=== PATIENT | male | born 1960 | race Caucasian/White ===

== ENCOUNTER 2021-06-20 10:55 | Inpatient (IN) | payer BC, OTHER ==
[~2021-06-20] VITALS: Ht 180.3 cm; Wt 88.9 kg
[2021-06-20 11:00] VITALS: BP 113/80
[2021-06-20 11:34] LABS: HEMOGLOBIN 12.3 gm/dL (14.0-18.0); MCH 21.5 pg (26.0-34.0); MCHC 32.4 g/dL (28.0-37.0); MCV 66.4 fL (80.0-100.0); PLATELET COUNT 174 thou/uL (150-400); RBC 5.73 mil/uL (4.50-6.00); RDW 14.8 % (10.5-14.5); WBC 8.1 thou/uL (4.0-11.0)
[2021-06-20 11:40] LABS: CALCIUM 8.2 mg/dL (8.5-10.1); POTASSIUM 3.9 mmol/L (3.5-5.1)
[2021-06-20 11:50] LABS: ALBUMIN 2.9 g/dL (3.4-5.0); TOTAL BILIRUBIN 1.1 mg/dL (0.2-1.0); TOTAL PROTEIN 6.7 g/dL (6.4-8.2)
[2021-06-20 12:37] LABS: ABSOLUTE NEUTROPHILS 7.4 thou/uL (1.4-8.2); ANISOCYTOSIS 1+; MICROCYTES 2+; PLATELET ESTIMATE NORMAL
[2021-06-20 14:27] VITALS: BP 114/73
--- NOTE | 2021-06-20 15:04 | NUR ---
REPORT CALLED TO FLOOR NURSE AT THIS TIME. NURSE STATES THE BED IS NOT CURRENTLY CLEAN AND SHE WILL CALL WHEN IT IS READY.
[2021-06-20 16:30] VITALS: BP 117/69
[2021-06-20 17:20] VITALS: BP 128/86
--- NOTE | 2021-06-20 17:24 | EKG ---
[address] [address] ELECTROCARDIOGRAM REPORT Name: KATHY NEVILLE Room #: 358-P ADM IN M.R.#: [id number] Admission: 06/20/21 Attend Phys: Mark Flowers MD Discharge: Date of : 64 Report #: [id number] [facility] ED Test Date: 2021-06-20 Test Time: 11:11:46 Pat Name: KATHY NEVILLE Department: Room: [facility] Gender: M Sequins Spooler: [id number] : 1960 Requested By: Emerita Hung Order Number: [id number] MD: Mason Avendaño Measurements Intervals [place] Rate: 99 P: [place]: QRS: 2 QRSD: 122 T: -15 QT: 330 QTc: 424 Interpretive Statements Marked baseline artifact Sinus rhythm Compared to ECG 10/15/2012 10:22:55 No significant change was found Electronically Signed On 06-20-2021 17:24:31 MARKETING CONTENT SPECIALIST by Mason Avendaño [email or web address] <ELECTRONICALLY SIGNED> By: Mason Avendaño MD, [facility] 06/20/21 1724 1111 [facility] Mason Avendaño MD, FACC /EPI
--- NOTE | 2021-06-20 17:55 | NUR ---
PATIENT ADMIT TO UNIT AT 1630. A/O X4. ON 6L /NC. SOB WITH EXERTON. ANXUIOS. WILL KEEP MONITOR.
[2021-06-21 04:37] VITALS: BP 149/92
--- NOTE | 2021-06-21 06:09 | NUR ---
NEW ADMIT ON 06/20. NON VACCINATED AND REFUSING SOME MEDICATIONS. EDUCATED PT ABOUT COVID AND NEED TO FOLLOW COVID POC. PT HAS SOME COMFUSION HE WILL ASK THE SAME QUESTIONS 2/3 TIMES OVER SHIFT. CURRENTLY ON 6L AND 02 SAT IS 95%. PT CAN AMBULATE AD RENETTA. CALL LIGHT WITHIN REACH.
[2021-06-21 06:48] LABS: HEMATOCRIT 36.3 % (42.0-52.0); HEMOGLOBIN 11.9 gm/dL (14.0-18.0); MCHC 32.9 g/dL (28.0-37.0); MCV 67.1 fL (80.0-100.0); RBC 5.41 mil/uL (4.50-6.00); RDW 14.8 % (10.5-14.5); WBC 6.8 thou/uL (4.0-11.0)
[2021-06-21 06:51] LABS: CALCIUM 8.1 mg/dL (8.5-10.1); CREATININE 0.9 mg/dL (0.7-1.3); POTASSIUM 4.3 mmol/L (3.5-5.1)
[2021-06-21 11:26] VITALS: BP 141/85
--- NOTE | 2021-06-21 12:28 | NUR ---
INITIAL ASSESSMENT: SW reviewed chart and spoke with nursing and attending physician. Pt was admitted from home due to respiratory failure/COVID. Pt placed in Enhanced Isolation. Per chart, pt has not received a COVID vaccination. Pt is afebrile. Pt was on 10L earlier today and is now requiring optiflow. SW spoke with pt via phone. Introduced role of SW. Pt is alert/orientated x 4. Pt reports he lives at home with his . Prior to admission, pt was independent with ADLs. No use of DME. No hx of services or post-acute placement. Pt's PCP is Dr. Wyatt Hernandez. No therapy ordered for pt at this time. Plan is for pt to discharge home when medically stable. SW is following to assist as needed with discharge planning.
--- NOTE | 2021-06-21 17:55 | NUR ---
ASSUMED PATIENT CASRE AT 0700. A/O X4. ANXIOUS. ON OPTIFLOW 50L/65%. WILL KEEP MONITOR.
[2021-06-21 19:30] VITALS: BP 141/86
[2021-06-22] VITALS (8 sets, daily range): BP systolic 114–141; BP diastolic 62–96
--- NOTE | 2021-06-22 00:16 | HC ---
[facility] [place] [address] CONSULTATION Name: KATHY NEVILLE Room #: 358-P [facility] IN ..#: [id number] Admission: 06/20/21 Attend Phys: Mark Flowers MD Discharge: Date of : 64 Report #: [id number] THIS REPORT FOR: cc: Wyatt Hernanedz MD, Stanley P. MD Geha, Daniel J. MD ~ DATE OF SERVICE: 06/20/2021 INFECTIOUS DISEASE CONSULTATION REASON FOR CONSULTATION: I was asked to evaluate concerning COVID-19 pneumonia. HISTORY OF PRESENT ILLNESS: The patient is a 61-year-old unvaccinated with COVID-19 presents with a 10-day history of low-grade fever, myalgias, arthralgia, nonproductive cough and progressive shortness of breath. No headache or anosmia. Mild GI upset and diarrhea. He was on prednisone and azithromycin prior to his admission. He presented to the emergency room, hypoxic with O2 saturations in the 80s on room air. Now on 6 L of oxygen per nasal cannula. Chest x-ray has shown bilateral pulmonary infiltrates. ALLERGIES: CLINDAMYCIN and PENICILLIN. MEDICATIONS: As noted on his MAR. PAST MEDICAL HISTORY: ____. FAMILY HISTORY: Negative for tuberculosis. SOCIAL HISTORY: Nonsmoker. No significant alcohol intake. Lives with his . No recent travel. REVIEW OF SYSTEMS: A 14-point review of systems was negative, other than what has been described above. PHYSICAL EXAMINATION: GENERAL: He is afebrile and hemodynamically stable. Alert, cooperative and pleasant. No acute distress. He is on CPAP high flow. SKIN: Without rash. HEENT: No palpable adenopathy. Eyes without scleral icterus. Mouth without mucositis. NECK: Supple. LUNGS: Crackles posteriorly. HEART: Regular without murmur. ABDOMEN: Soft and nontender with no hepatosplenomegaly or mass. EXTREMITIES: Without clubbing, cyanosis or edema. Cranial nerves intact. Strength in the upper and lower extremities are symmetric. Mood without [facility] [address] [place] [address] CONSULTATION Name: JAMINKATHY Room #: 358[facility] IN ..#: [id number] Admission: 06/20/21 Attend Phys: Mark Flowers MD Discharge: Date of : 64 Report #: [id number] anxiety. LABORATORY: Reviewed. MICROBIOLOGY: Reviewed. IMAGING: Chest x-ray reviewed. CT scan of the chest reviewed. IMPRESSION: A 61-year-old with COVID-19 pneumonia and respiratory failure. He is unvaccinated for COVID-19. He has underlying obstructive sleep apnea. RECOMMENDATION: I offered the patient remdesivir and corticosteroids and if he should worsen, we would consider IL-6 inhibitor. He has been on 6 to 8 L of oxygen per nasal cannula. May well progress from there. We will follow serial laboratory studies and x-rays. The patient was contemplating his treatment options, but did not give me a decision, has been started on corticosteroids. I have discussed with nurse again at the bedside. <ELECTRONICALLY SIGNED> By: Nate Colmenares MD 06/22/21 0016 [id number] Nate Colmenares MD /nt
[2021-06-22 05:09] LABS: ABSOLUTE NEUTROPHILS 7.2 thou/uL (1.4-8.2); BASOPHILS 0.2 % (0.0-2.0); HEMATOCRIT 36.5 % (42.0-52.0); HEMOGLOBIN 11.8 gm/dL (14.0-18.0); LYMPHOCYTES 8.3 % (24.0-44.0); MCH 21.9 pg (26.0-34.0); MCHC 32.4 g/dL (28.0-37.0); MCV 67.6 fL (80.0-100.0); MONOCYTES 4.1 % (1.0-8.0); PLATELET COUNT 202 thou/uL (150-400); POLYS 87.4 % (36.0-66.0); RDW 14.6 % (10.5-14.5); WBC 8.3 thou/uL (4.0-11.0)
[2021-06-22 05:26] LABS: ALBUMIN 2.4 g/dL (3.4-5.0); DIRECT BILIRUBIN 0.2 mg/dL (<0.1-0.2); POTASSIUM 4.7 mmol/L (3.5-5.1); TOTAL BILIRUBIN 1.3 mg/dL (0.2-1.0); TOTAL PROTEIN 6.6 g/dL (6.4-8.2)
--- NOTE | 2021-06-22 13:17 | NUR ---
SW reviewed chart and spoke with nursing and attending physician. Pt remains in Enhanced Isolation due to COVID. Pt is afebrile and on optiflow. Pt is on IV steroids and has started course of Remdesivir. Therapy evals to be ordered when pt is able to participate. NILTON is following to assist as needed with discharge planning.
--- NOTE | 2021-06-22 18:38 | NUR ---
ASSUMED PATIENT CARE AT 0700. A/0 X4. ANXIOUS. INCREASED 02 TO 55L/80% ON OPTIFLOW.PATIENT WAS WORKING ON IS. SOB WITH EXERTION. NOT TOWARDS PATIENT CARE GOALS,
[2021-06-23] VITALS (11 sets, daily range): BP systolic 113–188; BP diastolic 68–86
[2021-06-23 03:58] LABS: ABSOLUTE NEUTROPHILS 7.8 thou/uL (1.4-8.2); BASOPHILS 0.1 % (0.0-2.0); HEMATOCRIT 36.1 % (42.0-52.0); HEMOGLOBIN 11.6 gm/dL (14.0-18.0); LYMPHOCYTES 6.7 % (24.0-44.0); MCH 21.6 pg (26.0-34.0); MCHC 32.1 g/dL (28.0-37.0); MCV 67.3 fL (80.0-100.0); MONOCYTES 3.5 % (1.0-8.0); PLATELET COUNT 216 thou/uL (150-400); POLYS 89.7 % (36.0-66.0); RBC 5.36 mil/uL (4.50-6.00); WBC 8.7 thou/uL (4.0-11.0)
[2021-06-23 04:40] LABS: ALBUMIN 2.5 g/dL (3.4-5.0); CALCIUM 7.9 mg/dL (8.5-10.1); POTASSIUM 4.3 mmol/L (3.5-5.1); TOTAL BILIRUBIN 0.8 mg/dL (0.2-1.0); TOTAL PROTEIN 5.9 g/dL (6.4-8.2)
--- NOTE | 2021-06-23 06:42 | NUR ---
Patient not making progress towards outcome goals. Needs optiflow 55L/80% to maintain sats between 90-94% at best. Afib with RVR, orders received for Cardizem bolus and Cardizem drip currently at 5mg/hr. SBP 110's -140's. Patient is anxious with a lot of resistance taking prescribed medications, calmed down after extensive explanation and positive reinforcement.
--- NOTE | 2021-06-23 11:04 | EKG ---
[address] [place] [address] ELECTROCARDIOGRAM REPORT Name: KATHY NEVILLE Room #: 358-P ADM IN M.R.#: [id number] Admission: 06/20/21 Attend Phys: Mark Flowers MD Discharge: Date of : 64 Report #: [id number] [facility] Test Date: 2021-06-22 Test Time: 22:43:33 Pat Name: KATHY NEVILLE Department: Room: 358 P Gender: M Datapower Consultant: SENTHIL : 1960 Requested By: Barbara Capellan Order Number: [id number] MD: iBnu Pepper Measurements Intervals [place] Rate: 143 P: [place]: QRS: 24 QRSD: 77 T: -3 QT: 304 QTc: 469 Interpretive Statements Atrial fibrillation Repol abnrm suggests ischemia, anterior leads Artifact in lead(s) V3 and baseline wander in lead(s) V1,V2,V3 Compared to ECG 06/20/2021 11:11:46 Early repolarization now present Possible ischemia now present Sinus rhythm no longer present Electronically Signed On 06-23-2021 11:04:05 TEXTILE SCREEN PRINTER by Binu Pepper [email or web address] <ELECTRONICALLY SIGNED> By: Binu Pepper MD, [facility] 06/23/21 1104 [id number] Binu Pepper MD, [facility] /EPI
--- NOTE | 2021-06-23 14:34 | NUR ---
SW reviewed chart and spoke with nursing and attending physician. Pt remains in Enhanced Isolation due to COVID. Pt is afebrile and requiring optiflow. Pt is on IV steroids and Remdesivir. No weekend discharge planned. Cardiology consulted. Cardizem gtt started. Pt to transition to PO. Therapy evals to be ordered when pt is able to participate. NILTON is following to assist as needed with discharge planning.
--- NOTE | 2021-06-23 16:55 | NUR ---
RN ASSUMED PT'S CARE AT 0700AM, PT IS A&OX4, PT IS ON OPTIFLOW O2 75-80%, O2 55-60L/MIN/NC, PT'S O2SAT STAY AT 90-96%, PT STILL HAS SOB WITH ACTIVITIES, PT 'S VS ARE STABLE AT DAY SHIFT, PT IS CONTINUING ABX AND TREAT COVID MEDICATION,
[2021-06-24 04:00] VITALS: BP 122/70
[2021-06-24 05:04] LABS: ABSOLUTE NEUTROPHILS 6.5 thou/uL (1.4-8.2); BASOPHILS 0.1 % (0.0-2.0); EOSINOPHILS 0.6 % (0.0-3.0); HEMATOCRIT 34.7 % (42.0-52.0); HEMOGLOBIN 11.3 gm/dL (14.0-18.0); LYMPHOCYTES 6.8 % (24.0-44.0); MCH 21.7 pg (26.0-34.0); MCHC 32.5 g/dL (28.0-37.0); MCV 66.7 fL (80.0-100.0); MONOCYTES 2.8 % (1.0-8.0); PLATELET COUNT 236 thou/uL (150-400); POLYS 89.7 % (36.0-66.0); WBC 7.2 thou/uL (4.0-11.0)
[2021-06-24 05:23] LABS: ALBUMIN 2.4 g/dL (3.4-5.0); CALCIUM 8.3 mg/dL (8.5-10.1); CREATININE 1.1 mg/dL (0.7-1.3); POTASSIUM 4.3 mmol/L (3.5-5.1); TOTAL BILIRUBIN 0.6 mg/dL (0.2-1.0)
--- NOTE | 2021-06-24 06:08 | NUR ---
PROGRESS PT A/O X4 LUNGS DIMINISHED AND SLGHTLY WHEEZY IN LOWER LOBES. ON OPTIFLOW 80L/60%FIO2. VOIDING QS HAD A SMALL BM. UP WITH ASSISTANCE D/T EQUIPMENT. PLACED ON CPAP AT HS AND SLEPT THROUGHOUT NIGHT.
[2021-06-24 07:36] VITALS: BP 119/78
--- NOTE | 2021-06-24 10:51 | EKG ---
[address] [address] ELECTROCARDIOGRAM REPORT Name: KATHY NEVILLE Room #: 358-P ADM IN M.R.#: [id number] Admission: 06/20/21 Attend Phys: Mark Flowers MD Discharge: Date of : 64 Report #: [id number] [facility] Test Date: 2021-06-23 Test Time: 07:55:51 Pat Name: KATHY NEVILLE Department: Room: 358 P Gender: M Ceramic Tile Mechanic: noam : 1960 Requested By: Tonia Blue Order Number: [id number] : Jose Hull Measurements Intervals [place] Rate: 69 P: 54 TN: 147 QRS: 27 QRSD: 80 T: 15 QT: 403 QTc: 432 Interpretive Statements Sinus rhythm Atrial premature complex Compared to ECG 06/22/2021 22:43:33 Atrial premature complex(es) now present Atrial fibrillation no longer present Early repolarization no longer present Possible ischemia no longer present Electronically Signed On 06-24-2021 10:51:23 HOUSEHOLD REFRIGERATOR MECHANIC by Jose Hull [email or web address] <ELECTRONICALLY SIGNED> By: Jose Hull MD 06/24/21 1051 [id number] Jose Hull MD /EPI
[2021-06-24 11:11] VITALS: BP 116/71
[2021-06-24 15:48] VITALS: BP 124/88
--- NOTE | 2021-06-24 18:05 | NUR ---
RN ASSUMED PT'S CARE AT 0700AM, PT IS A&OX4, PT IS ON BIPAP ( O2 100%) AT MOST OF TIME, PT'S O2SAT STAY AT 92-96%, BUT PT STILL IS DE-SAT AT ACTIVITIES, PT'S VS AND BS ARE STABLE, PT IS CONTINUING ABX AND TREAT COVID MEDICATIONS, PT DENIES PAIN AT DAY SHIFT. RN WILL REPORT TO NEXT SHIFT TO KEEP EYE ON PT.
[2021-06-24 19:21] VITALS: BP 113/75
--- NOTE | 2021-06-24 23:42 | NUR ---
PT ON BIPAP AT 100%. RESPIRATIONS AT 26, BP 113/75, 78 SATS AT 96%. HAS BEEN RUNNING BETWEEN [address] LÓPEZ IN AND CONCERNED ABOUT INCREASING OXYGEN NEEDS. CALL TO ADVISED OF 'S CONCERN ORDER TO TRANSFER TO ICU. MANAGER OB SANTO KNAPP NOTIFIED AWAITING BED ASSIGNEMENT AND IKE CALDERÓN TO COME UP AND ASSESS BEFORE TRANSFER.
[2021-06-25] VITALS (36 sets, daily range): BP systolic 100–147; BP diastolic 54–87
[2021-06-25 02:05] LABS: HEPATITIS C VIRUS AB <0.1 (0.0-0.9); HIV ANTIBODY Non Reactive (Non Reactive)
--- NOTE | 2021-06-25 02:30 | NUR ---
PATIENT TRANSFER FROM ARRIVED AT [facility] 0210 DUE TO INCREASED OXYGEN DEMANDS. PATIENT ASSESSMENT COMPLETED. PATIENT RESTING COMFORTABLY. WILL CONTINUE TO MONITOR.
--- NOTE | 2021-06-25 03:05 | NUR ---
SPOKE WITH PATIENT SPOUSE AND UPDATED ON PATIENT STATUS, ANSWERED ALL QUESTIONS.
[2021-06-25 05:55] LABS: ABSOLUTE NEUTROPHILS 6.2 thou/uL (1.4-8.2); BASOPHILS 0.2 % (0.0-2.0); EOSINOPHILS 2.8 % (0.0-3.0); HEMATOCRIT 35.3 % (42.0-52.0); HEMOGLOBIN 11.6 gm/dL (14.0-18.0); LYMPHOCYTES 10.5 % (24.0-44.0); MCH 21.8 pg (26.0-34.0); MCHC 32.9 g/dL (28.0-37.0); MCV 66.1 fL (80.0-100.0); MONOCYTES 1.7 % (1.0-8.0); PLATELET COUNT 227 thou/uL (150-400); POLYS 84.8 % (36.0-66.0); RBC 5.34 mil/uL (4.50-6.00); RDW 14.6 % (10.5-14.5); WBC 7.3 thou/uL (4.0-11.0)
[2021-06-25 06:20] LABS: ALBUMIN 2.4 g/dL (3.4-5.0); CALCIUM 7.7 mg/dL (8.5-10.1); CREATININE 1.1 mg/dL (0.7-1.3); TOTAL BILIRUBIN 0.7 mg/dL (0.2-1.0); TOTAL PROTEIN 5.8 g/dL (6.4-8.2)
--- NOTE | 2021-06-25 06:32 | NUR ---
PATIENT A0X4. BIPAP AT 100%. PERIODICALLY TACHYPNEIC AND DESATS TO 88%. NSR THROUGHOUT THE NOC. PATIENT VOIDING VIA URINAL. NO BM FOR ME. PATIENT RESTED QUIETLY THROUGHOUT MOST OF NOC. WILL CONTINUE TO MONITOR.
[2021-06-25 10:46] LABS: BE(vivo) -3.1 mmol/L (-2 to +3); HCO3 19.2 mmol/L (22.0-26.0); PCO2 26.8 mmHg (35.0-45.0); PO2 63.4 mmHg (80.0-100.0); pH 7.472 (7.360-7.450); sO2 93.9 % (92.0-98.0)
--- NOTE | 2021-06-25 14:29 | NUR ---
RT IJ PLACED FOR INTUBATION/COVID
[2021-06-25 15:55] LABS: BE(vivo) -5.9 mmol/L (-2 to +3); HCO3 17.9 mmol/L (22.0-26.0); PCO2 30.8 mmHg (35.0-45.0); PO2 52.8 mmHg (80.0-100.0); pH 7.383 (7.360-7.450); sO2 87.3 % (92.0-98.0)
--- NOTE | 2021-06-25 20:00 | NUR ---
PATIENT WAS TAKEN OFF BIPAP FOR A SHORT TIME AND PLACED ON ACCUFLOW FOR 2 MIN AND WAS ABLE TO GET HIS PO MEDICATIONS IN AT THAT TIME. 02 WAS LOW AND DID NOT COME BACK UP RT CHANGED BIPAP SSETTINGS. 02 STAYED LOW CALLED DOCTOR ANGE, HE SAID HE WOULD BE IN. DOCTOR STRUM IN AND IV CENTRAL LINE WAS PLACED BY IV TEAM AND PATIENT WAS INTUBATED @ 1247, GOOD COLOR CHANGE AND BREATH SOUNDS AFTER INTUBATION. OG AND AVILEZ WAS PLACED AND XRAY WAS DONE. DOCTOR ANGE SAID ALL TUBS WERE IN THE RIGHT PLACE. OG WAS HOOKED UP TO LWS, RIGHT IJ INFUSING SEDATION MEDICATION (PROPOFOL AND FENTANYL). BP WAS LOW AFTER INTUBATION DOCTOR ANGE ORDERED LEVOPHED WAS HUNG. PATINETS 02 CAME UP WITH THE START OF LEVOPHED. PATIENT WAS STILL FIGHTING VENT AND 02 WAS STILL LOW SO VERSED AND PREDEX WAS HUNG. PATIENT 02 UP IN TO LOW 90'S AFTER ALL THIS. LEVEOPHED WAS TITRATED DOWN TO 0.03 AND PATIENT HEART RATE IN THE 40'S DOCTOR SAUER WAS PAGED WITH NO RESPONES PAST TO NIGHT NURSE. THIS NURSE DID CALL AND TALK TO THE PATIENTS AND SON AFTER INTUBATION WAS DONE. SOFT WRIST RESTRAINS WERE PLACE AND ORDER IN @ 1330. PATIENT IS RESTING IN BED. REPORT WAS GIVEN TO NIGHT NURSE.
[2021-06-26] VITALS (65 sets, daily range): BP systolic 83–127; BP diastolic 47–75
[2021-06-26 04:42] LABS: ABSOLUTE NEUTROPHILS 7.2 thou/uL (1.4-8.2); BASOPHILS 0.1 % (0.0-2.0); EOSINOPHILS 1.7 % (0.0-3.0); HEMATOCRIT 38.2 % (42.0-52.0); HEMOGLOBIN 12.8 gm/dL (14.0-18.0); LYMPHOCYTES 5.2 % (24.0-44.0); MCH 22.1 pg (26.0-34.0); MCHC 33.6 g/dL (28.0-37.0); MCV 65.9 fL (80.0-100.0); MONOCYTES 2.2 % (1.0-8.0); PLATELET COUNT 274 thou/uL (150-400); POLYS 90.8 % (36.0-66.0); RDW 14.9 % (10.5-14.5)
--- NOTE | 2021-06-26 05:45 | NUR ---
SPOKE WITH SPOUSE AND UPDATED ON PATIENT CONDITION AND STATUS. ALL QUESTIONS WERE ANSWERED DURING THE CALL.
[2021-06-26 06:09] LABS: ALBUMIN 2.5 g/dL (3.4-5.0); CALCIUM 7.9 mg/dL (8.5-10.1); CREATININE 0.9 mg/dL (0.7-1.3); POTASSIUM 4.4 mmol/L (3.5-5.1); TOTAL BILIRUBIN 0.7 mg/dL (0.2-1.0); TOTAL PROTEIN 6.1 g/dL (6.4-8.2)
--- NOTE | 2021-06-26 06:39 | NUR ---
PATIENT INTUBATED/ SEDATED. PATIENT STILL REQUIRING 100% FI02, RR 20, PEEP 16, AND PSINP 30. PATIENT SATS IN LOW 90s MOST OF THE NOC WITH PERIODIC DROPS TO UPPER 80s. PATIENT DESATS WITH RESPOSITIONING OR ANY STIMULATION. PATIENT MODERATELY SEDATED D/T DESAT AND VERY TACHYPNEIC WHEN SEDATION TITRATED DOWN. AVILEZ OUTPUT FOR THE NOC WAS 1000 ML AND NO BM OVERNOC. OGT 68 AT LIP TO LIS WITH ZERO OUTPUT OVERNOC. PATIENT STILL REQUIRING VERY MINIMAL PRESSOR SUPPORT TO MAINTAIN MAP >60. WILL CONTINUE TO MONITOR AND FOLLOW POC.
[2021-06-26 09:34] LABS: T-SPOT.TB Negative
--- NOTE | 2021-06-26 09:45 | NUR ---
0845: DISCUSSED PATIENT WITH DR. TOSCANO DURING INTERDISCIPLINARY ROUNDS. NOTIFIED HIM PT IS REQUIRING INCREASED LEVO FOR MAP >60 AND THAT AMIODARONE DOSE WAS HELD TODAY DUE TO HYPOTENSION AND BRADYCARDIA. NOTIFIED HIM PT'S SPO2 89-92% ON 100% FIO2. PT REMAINS SEDATED, VERY SENSITIVE TO ANY CARES, WILL AROUSE EASILY. ADEQUATE UOP AT THIS TIME. TEAM TO ORDER TUBE FEEDS TO PROMOTE ADEQUATE NUTRITION TODAY.
--- NOTE | 2021-06-26 14:03 | NUR ---
NEW ORDER NOTED FOR SPUTUM CULTURE. PT DOES NOT HAVE ANY SECRETIONS TO SEND TO LAB AT THIS TIME.
--- NOTE | 2021-06-26 14:27 | NUR ---
1400: THIS RN NOTIFIED THAT ARIA EVANS SPOKE WITH PT'S SPOUSE VIA TELEPHONE AND UPDATED HER ON PT'S STATUS.
--- NOTE | 2021-06-26 16:16 | NUR ---
RN NOTIFIED DR. TOSCANO PT'S SPO2 REMAINS 89-90% DESPITE INCREASED SEDATION AND STABLE BP ON 0.05 OF LEVOPHED, 100% FIO2, PEEP 16. NEW ORDERS FROM DR. NAVARRO FOR CT ANGIO PER PE PROTOCOL AND OBTAIN CVP.
--- NOTE | 2021-06-26 18:04 | NUR ---
1800: RN CALLED DR. TOSCANO, NOTIFIED HIM OF CVP CHECKED AT 12 WHEN PT FLAT. CTA COMPLETED, RN READ IMPRESSION TO DORCAS OVER THE PHONE. PT REMAINS WITH SPO2 AD 88-89% AT THIS TIME. NEW ORDERS TO CHANGE PC TO 32, IF NO IMPROVEMENT, WILL PLAN TO TRY APRV. JES, RT NOTIFIED FOR VENT CHANGE.
--- NOTE | 2021-06-26 19:23 | NUR ---
1630: PT OFF UNIT VIA BED ACCOMPANIED BY THIS RN, CRISTINA, RN AND JES, RT TO CT SCAN. 1715: PT RETURNED TO UNIT, TOLERATED SCAN WELL, REMAINS WITH SPO2 FLUCTUATING BETWEEN 88-90% RN TO OBTAIN CVP AT THIS TIME
--- NOTE | 2021-06-26 19:30 | NUR ---
PT PROGRESSING TOWARDS GOALS THIS SHIFT EVIDENCED BY IMPROVEMNT IN [facility] SCALE TO 3, PASSING SWALLOW EVAL AND STARTING A DIET, WORKING WITH PT/OT AND AMBULATING, DOWNGRADING TO MED/SURG TELE LEVEL OF CARE.
--- NOTE | 2021-06-26 19:32 | NUR ---
PT IS NOT CURRENTLY PROGRESSING IN GOALS EVIDENCED BY CONTINUED DESATURATIONS TO 80S TODAY, CTA TO RULE OUT PE, ADJUSTMENTS IN VENTILATOR SETTINGS, PEEP OF 16 AND FIO2 OF 100%
[2021-06-27] VITALS (77 sets, daily range): BP systolic 70–130; BP diastolic 35–66
--- NOTE | 2021-06-27 00:06 | NUR ---
SPOKE WITH DR. TOSCANO REGARDING FLUCTUATING TIDAL VOLUMES (50-900) AND PATIENT OVERBREATHING VENT. ORDERS GIVEN FOR IVP VECURONIUM ONETIME.
--- NOTE | 2021-06-27 04:00 | NUR ---
PER RESPIRATORY THERAPY, ETT MIGRATED OUT AND CUFF WAS OVERINFLATED. ETT REPOSITIONED TO 27 AT THE TEETH AND RADIOLOGY CALLED FOR CXR TO BE PERFORMED TO CONFIRM PLACEMENT. DORCAS NOTIFIED, NO NEW ORDERS RECEIVED.
[2021-06-27 05:03] LABS: BE(vivo) -5.9 mmol/L (-2 to +3); HCO3 21.9 mmol/L (22.0-26.0); PCO2 52.3 mmHg (35.0-45.0); PO2 69.3 mmHg (80.0-100.0); sO2 90.6 % (92.0-98.0)
[2021-06-27 05:04] LABS: pH 7.239 (7.360-7.450)
[2021-06-27 05:07] LABS: ABSOLUTE NEUTROPHILS 9.7 thou/uL (1.4-8.2); BASOPHILS 0.5 % (0.0-2.0); EOSINOPHILS 2.2 % (0.0-3.0); HEMATOCRIT 39.3 % (42.0-52.0); HEMOGLOBIN 12.6 gm/dL (14.0-18.0); MCH 21.6 pg (26.0-34.0); MCHC 32.2 g/dL (28.0-37.0); MONOCYTES 2.3 % (1.0-8.0); PLATELET COUNT 315 thou/uL (150-400); RBC 5.86 mil/uL (4.50-6.00); RDW 15.1 % (10.5-14.5); WBC 11.1 thou/uL (4.0-11.0)
--- NOTE | 2021-06-27 05:30 | NUR ---
SPOKE WITH DR. TOSCANO AND UPDATED ON PATIENT CONDITION. RASS INCREASED TO -4 FENTANYL MAX CHANGED PER PROTOCOL.
[2021-06-27 05:57] LABS: ALBUMIN 2.5 g/dL (3.4-5.0); CALCIUM 7.8 mg/dL (8.5-10.1); CREATININE 1.2 mg/dL (0.7-1.3); POTASSIUM 5.3 mmol/L (3.5-5.1); TOTAL BILIRUBIN 0.5 mg/dL (0.2-1.0); TOTAL PROTEIN 6.2 g/dL (6.4-8.2)
--- NOTE | 2021-06-27 08:04 | NUR ---
PATIENT SEDATED TITRATED UP THROUGHOUT THE NOC D/T PATIENT AWAKENING AND DESAT TO MID-UPPER 80s FOR LONG PERIODS. PATIENT SATs INCREASED WITH INCREASED SEDATION AND LESS VOLUMES ON VENT LESS VARIABLE, RR CLOSER TO SET RATE. PATIENT SR AND HR 60-70s MOST OF THE NOC. PATIENT DID NOT TOLERATE TURNS OR ACTIVITY MUCH OF THE SHIFT, DESAT TO 80s AND IT WAS HARD TO INCREASE SATs. PATIENT STILL REQUIRING LEVO TO MAINTAIN TO MAP >60, PROPOFOL, FENTANYL, VERSED, AND PRECEDEX GTTs FOR VENT MANAGEMENT. PATIENT ABG CRITICAL IN THE AM AND RESULTS WERE CALLED TO THE TRAFFIC ASSISTANT. VENT SETTINGS PCV RR 20, PEEP 16, PIP 30, FIO2 100%. CVP SPOT CHECKS THROUGHOUT THE SHIFT BUT WAVEFORM VERY POOR. MINIMAL IN-LINE SECRECTIONS AND MODERATE ORAL SECRETIONS. AVILEZ OUTPUT TOTAL 500 WHICH WAS A DECREASE FROM PREV NOC SHIFT (OUTPUT WAS 1000). FAMILY DID NOT CALL FOR UPDATES DURING NOC SHIFT. WILL CONTINUE TO MONITOR AND FOLLOW POC.
--- NOTE | 2021-06-27 13:25 | NUR ---
Discussed during los with the attending physician. Covid +, in enhanced isolation. vent 100%, peep 16. echo today. levo for pressure and nutritional support. will cont following as needed for dc
--- NOTE | 2021-06-27 19:31 | NUR ---
pt ETT pulled to 29cm at lips by RT Kris. Chest Xray was done to confirm placement. Dr. Kingston was notified by RT Kris. Peep was not increased to 18 as patient's blood pressure was in upper 70's systolic. RT Kris notified Dr. Kingston about it.
[2021-06-28] VITALS (59 sets, daily range): BP systolic 98–144; BP diastolic 48–76
[2021-06-28 04:30] LABS: BE(vivo) -2.6 mmol/L (-2 to +3); HCO3 25.5 mmol/L (22.0-26.0); PCO2 58.7 mmHg (35.0-45.0); PO2 74.6 mmHg (80.0-100.0); sO2 92.5 % (92.0-98.0)
[2021-06-28 04:56] LABS: pH 7.256 (7.360-7.450)
[2021-06-28 05:30] LABS: HEMATOCRIT 38.5 % (42.0-52.0); HEMOGLOBIN 12.3 gm/dL (14.0-18.0); MCH 21.5 pg (26.0-34.0); MCHC 31.9 g/dL (28.0-37.0); MCV 67.4 fL (80.0-100.0); PLATELET COUNT 274 thou/uL (150-400); RBC 5.71 mil/uL (4.50-6.00); RDW 14.9 % (10.5-14.5); WBC 11.9 thou/uL (4.0-11.0)
[2021-06-28 05:46] LABS: ALBUMIN 2.5 g/dL (3.4-5.0); CALCIUM 7.7 mg/dL (8.5-10.1); CREATININE 1.2 mg/dL (0.7-1.3); TOTAL BILIRUBIN 0.4 mg/dL (0.2-1.0); TOTAL PROTEIN 6.1 g/dL (6.4-8.2)
[2021-06-28 05:59] LABS: POTASSIUM 6.2 mmol/L (3.5-5.1)
[2021-06-28 10:35] LABS: ABSOLUTE NEUTROPHILS 11.4 thou/uL (1.4-8.2); METAMYELOCYTES 2 %; OVALOCYTES 1+
[2021-06-28 10:36] LABS: HYPOCHROMASIA 2+; MICROCYTES 2+; TEARDROPS FEW
[2021-06-28 10:37] LABS: SCHISTOCYTES OCCASIONAL
[2021-06-28 12:20] LABS: ALBUMIN 2.5 g/dL (3.4-5.0); CALCIUM 8.3 mg/dL (8.5-10.1); CREATININE 1.3 mg/dL (0.7-1.3); POTASSIUM 5.9 mmol/L (3.5-5.1); TOTAL BILIRUBIN 0.5 mg/dL (0.2-1.0); TOTAL PROTEIN 6.1 g/dL (6.4-8.2)
--- NOTE | 2021-06-28 12:51 | NUR ---
CALLLED AND TALKED WITH IKE MCCULLOUGH SECURITY MANAGER. SHE SAID TO TURN THE AMIODARONE TO 0.5. IT WAS TURNED DOWN. PATIENT IS RESTING IN BED.
--- NOTE | 2021-06-28 15:32 | EKG ---
[address] [place] [address] ELECTROCARDIOGRAM REPORT Name: KATHY NEVILLE Room #: 239-P ADM IN M.R.#: [id number] Admission: 06/20/21 Attend Phys: Mark Flowers MD Discharge: Date of : 64 Report #: [id number] [facility] Test Date: 2021-06-28 Test Time: 15:18:06 Pat Name: KATHY NEVILLE Department: Room: 239 P Gender: M Merchandising Specialist: JESSI : 1960 Requested By: Mark Flowers Order Number: [id number] : Binu Pepper Measurements Intervals [place] Rate: 87 P: 74 [place]: 142 QRS: 77 QRSD: 88 T: 29 QT: 393 QTc: 473 Interpretive Statements Sinus rhythm Supraventricular bigeminy Left atrial enlargement Compared to ECG 06/23/2021 07:55:51 Atrial abnormality now present Electronically Signed On 06-28-2021 15:32:39 SUPERVISOR PIT AND AUXILIARIES by Binu Pepper [email or web address] <ELECTRONICALLY SIGNED> By: Binu Pepper MD, [facility] 06/28/21 1532 D: 01/1517 17 Binu Pepper MD, FACC /EPI
--- NOTE | 2021-06-28 15:44 | NUR ---
TALKED TO PATIENT . TOLD HE I COULD SEE IF I COULD GET DOCTOR ANGE AND THE INFECTION CONTROL PERSON TO CALL HER WELL. CALLED BOTH AND TALKED WITH BOTH ABOUT CALLING HER. WENT OVER LABS WITH HER AND TALKED ABOUT THEM NOT HAVING A BM AND THAT WE ARE GIVING BOWEL MEDICATIONS. PATIENT HAS HAD A RHYTHM CHANGE AND CALLED IKE GORDONG AND LEFT A MESSAGE FOR HER TO CALL AFTER EKG WAS DONE.
--- NOTE | 2021-06-28 15:54 | NUR ---
IKE MCCULLOUGH CALLED ABOUT ABOUT RHYTHM CHANGE. SHE LOOKED A EKG AND THERE ARE NO NEW ORDERS AT THIS TIME.
[2021-06-28 17:48] LABS: CALCIUM 8.3 mg/dL (8.5-10.1); CREATININE 1.3 mg/dL (0.7-1.3)
[2021-06-28 17:50] LABS: POTASSIUM 6.1 mmol/L (3.5-5.1)
--- NOTE | 2021-06-28 17:57 | NUR ---
TALKED TO DOCTOR SAUER ABOUT POTASSIUM 6.1 NEW ORDERS PLACED.
[2021-06-29] VITALS (99 sets, daily range): BP systolic 83–165; BP diastolic 45–91
[2021-06-29 05:20] LABS: ABSOLUTE NEUTROPHILS 14.6 thou/uL (1.4-8.2); BASOPHILS 0.9 % (0.0-2.0); EOSINOPHILS 0.1 % (0.0-3.0); HEMATOCRIT 36.5 % (42.0-52.0); HEMOGLOBIN 11.8 gm/dL (14.0-18.0); LYMPHOCYTES 5.5 % (24.0-44.0); MCH 21.7 pg (26.0-34.0); MCHC 32.4 g/dL (28.0-37.0); MCV 67.1 fL (80.0-100.0); MONOCYTES 2.9 % (1.0-8.0); PLATELET COUNT 269 thou/uL (150-400); POLYS 90.6 % (36.0-66.0); RBC 5.44 mil/uL (4.50-6.00); WBC 16.1 thou/uL (4.0-11.0)
[2021-06-29 05:52] LABS: ALBUMIN 2.4 g/dL (3.4-5.0); CALCIUM 7.7 mg/dL (8.5-10.1); POTASSIUM 5.2 mmol/L (3.5-5.1); TOTAL BILIRUBIN 0.5 mg/dL (0.2-1.0); TOTAL PROTEIN 5.8 g/dL (6.4-8.2)
--- NOTE | 2021-06-29 23:15 | NUR ---
PATIENT PRONED AT APPROX 2300 WITH RT AND SEVERAL NURSES AND TOLERATING WELL. FI02 AT 100% AND PATIENT 02SATS IN LOW 90s WITHIN MINUTES. WILL CONTINUE TO MONITOR AND TITRATE 0XYGEN DOWN.
[2021-06-30] VITALS (61 sets, daily range): BP systolic 80–145; BP diastolic 45–76
[2021-06-30 05:42] LABS: HEMATOCRIT 36.1 % (42.0-52.0); HEMOGLOBIN 11.2 gm/dL (14.0-18.0); MCV 67.7 fL (80.0-100.0); RBC 5.33 mil/uL (4.50-6.00); RDW 14.9 % (10.5-14.5); WBC 13.6 thou/uL (4.0-11.0)
[2021-06-30 05:58] LABS: CALCIUM 7.6 mg/dL (8.5-10.1); POTASSIUM 5.6 mmol/L (3.5-5.1)
--- NOTE | 2021-06-30 08:09 | NUR ---
PATIENT PROGRESSING SLOWLY TOWARD GOALS AND POC. PATIENT DEEPLY SEDATED. SB WITH HR MOSTLY 50s AND CONTINUING LEVO GTT AT 0.03 TO MAINTAIN MAP >60. PRECEDEX, FENTANYL, PROPOFOL, AND VERSED GTTs FOR VENT MANAGEMENT. PT PRONED MOST OF THE NOC AND 02 SATS MAINTAINED ON VENT SETTINGS. URINE OUTPUT APPROX 700 ML OVERNOC. NO BM. OGT TO LIS. CLRT WITH SCDS ON. WILL CONTINUE MONITOR AND FOLLOW POC.
--- NOTE | 2021-06-30 15:01 | 2DMMODE ---
[facility] [place] [address] 2 D/M-MODE ECHOCARDIOGRAM Name: KATHY NEVILLE Room #: 239-P ADM IN M.R.#: [id number] Admission: 06/20/21 Attend Phys: Mark Flowers MD Discharge: Date of : 64 Report #: [id number] THIS REPORT FOR: cc: Wyatt Hernandez MD, Stanley P. MD Lammoglia, Francisco J. MD ~ APPROVED REPORT Study performed: 06/30/2021 13:59:32 EXAM: Comprehensive 2D, Doppler, and color-flow Echocardiogram Patient Location: ICU Room #: 239 Status: routine BSA: 2.21 HR: 60 bpm BP: 128/68 mmHg Rhythm: NSR Other Information Study Quality: Fair/off axis apicals Technically limited study due to ventilator, lung interference. Indications Atrial Fibrillation Recent Covid diagnosis. 2D Dimensions IVSd: 10.46 (7-11mm) LVOT Diam: 22.92 (18-24mm) LVDd: 43.12 mm PWd: 10.35 (7-11mm) LVDs: 25.01 (25-40mm) Left Atrium: 31.34 (27-40mm) Aortic Root: 37.63 mm Aortic Valve AoV Peak Konrad.: 1.31 m/s AO Peak Gr.: 6.84 mmHg LVOT Max P.37 mmHg LVOT Max V: 0.77 m/s SHYAM Vmax: 2.43 cm2 Mitral Valve E/A Ratio: 1.[address] [facility] [address] [place] [address] 2 D/M-MODE ECHOCARDIOGRAM Name: KATHY NEVILLE Александр Room #: 239-P [facility] IN ..#: [id number] Admission: 06/20/21 Attend Phys: Mark Flowers MD Discharge: Date of : 64 Report #: [id number] MV Decel. Time: 263.58 ms MV E Max Konrad.: 0.57 m/s MV A Konrad.: 0.41 m/s MV PHT: 76.44 ms IVRT: 86.51 ms Tricuspid Valve TR Peak Konrad.: 3.03 m/s RAP Estimate: 15.00 mmHg TR Peak Gr.: 37.00 mmHg PA Pressure: 52.00 mmHg Left Ventricle The left ventricle is normal size. There is normal LV segmental wall motion. There is normal left ventricular wall thickness. Left ventricular systolic function is normal. LVEF is 65-70%. Right Ventricle The right ventricle is normal size. The right ventricular systolic function is normal. Atria The left atrium size is normal. The right atrium size is normal. Aortic Valve The aortic valve is normal in structure. No aortic regurgitation is present. There is no aortic valvular stenosis. Mitral Valve The mitral valve is normal in structure. There is no mitral valve regurgitation noted. Tricuspid Valve The tricuspid valve is normal in structure. Mild tricuspid regurgitation. Estimated PAP is 52mmHg. Pulmonic Valve Pulmonic valve is not well visualized. Trace pulmonic regurgitation. Great Vessels Aortic root is borderline dilated. Ascending aorta is not well visualized. IVC is dilated and collapses <50% with inspiration. Pericardium [facility] [address] [place] [address] 2 D/M-MODE ECHOCARDIOGRAM Name: KATHY NEVILLE Room #: 239-P ADM IN M.R.#: [id number] Admission: 06/20/21 Attend Phys: Mark Flowers MD Discharge: Date of : 64 Report #: [id number] There is no pericardial effusion. <Conclusion> The left ventricle is normal size. LVEF is 65-70%. The right ventricle is normal size. The left atrium size is normal. The left atrium size is normal. The aortic valve is normal in structure. The mitral valve is normal in structure. The tricuspid valve is normal in structure. Mild tricuspid regurgitation. Estimated PAP is 52mmHg. Pulmonic valve is not well visualized. Trace pulmonic regurgitation. Aortic root is upper limits There is no pericardial effusion. <ELECTRONICALLY SIGNED> By: Miguel Ángel Patterson MD 06/30/21 1500 1500 1500 Miguel Ángel Patterson MD /INF
--- NOTE | 2021-06-30 16:48 | NUR ---
Vent 60 % FIO2, peep 16 , nutritional support. Attending physician visited with his at bedside this morning. He out of enhanced covid isolation. Will cont following as needed.
--- NOTE | 2021-06-30 19:38 | NUR ---
VSS THROUGHOUT SHIFT, MINIMAL TITRATIONS TO LEVOPHED TO MAINTAIN MAP>60. PT SUPINED AT 0815, PRONED AT 1630 TODAY. BOWEL REGIMEN INCREASED, PASSING FLATUS BUT NO BM. 1X DOSE OF LASIX GIVEN WITH GOOD UOP, MEDS ADMIN THIS AM FOR HYPERKALEMIA. AT BEDSIDE FOR SEVERAL HOURS, SPOKE TO DR SAUER DIRECTLY FOR PATIENT STATUS UPDATE, UNABLE TO REACH DR TOSCANO FOR UPDATE TO .
[2021-07-01] VITALS (49 sets, daily range): BP systolic 89–120; BP diastolic 50–71
--- NOTE | 2021-07-01 03:00 | NUR ---
PATIENT SUPINED WITH 2 RTs AND 2 NURSES. NOTED SMALL SKIN TEARS TO LEFT EYE POST-PRONING. PATIENT SATs LOW-MID 90s DURING AND AFTER TURN. WILL CONTINUE TO MONITOR.
[2021-07-01 04:29] LABS: HEMATOCRIT 32.8 % (42.0-52.0); HEMOGLOBIN 10.6 gm/dL (14.0-18.0); MCH 21.7 pg (26.0-34.0); MCHC 32.3 g/dL (28.0-37.0); MCV 67.2 fL (80.0-100.0); RBC 4.89 mil/uL (4.50-6.00); RDW 14.8 % (10.5-14.5); WBC 8.9 thou/uL (4.0-11.0)
[2021-07-01 04:59] LABS: ALBUMIN 2.3 g/dL (3.4-5.0); CALCIUM 7.7 mg/dL (8.5-10.1); CREATININE 0.8 mg/dL (0.7-1.3); PHOSPHORUS 3.5 mg/dL (2.5-4.9); POTASSIUM 4.9 mmol/L (3.5-5.1)
--- NOTE | 2021-07-01 07:30 | NUR ---
PATIENT SLOWLY PROGRESSING TOWARD GOALS AND POC. TITRATED FI02 TO 50% OVERNOC. TURNED LEVO GTT OFF AT 0345 AND MAINTAINING MAP >60. DECREASED fi02 TO 50% OVERNOC AND O2 SATS REMAINED ABOVE 92% THROUGHOUT. POTASSIUM WITHIN NORMAL RANGE THIS AM AND NEPHROLOGY SIGNED OFF. URINE OUTPUT A LITTLE OVER 900 ML. NO BM OVERNOC BUT PASSING FLATUS. TF STILL ON HOLD - DISCUSSED WITH DAY SHIFT TO SEE IF CAN RESTART. TRACE EDEMA, BILATERAL HANDS. WILL CONTINUE TO MONITOR AND FOLLOW POC.
--- NOTE | 2021-07-01 13:18 | NUR ---
CALLED AND TALKED TO DOCTOR STAUFFER ABOUT TUBE FEEDING NEW ORDERS WERE PLACED, AND TUBE FEEDING WAS HUNG.
--- NOTE | 2021-07-01 15:19 | NUR ---
PATIENT IS AT BED SIDE. SHE ASKED ABOUT LABS AND ALL LABS WERE GIVEN. PATIENT BEEN TALKING AND SING TO PATIENT. PATIENT IS RESTING IN BED.
--- NOTE | 2021-07-01 16:55 | NUR ---
RT CALLED RAUL HAD AIR LEAK. RT PUSHED ET DOWN IS NOW 27 AT LIP. OG WAS PUSHED IN WELL AND IS NOW 69 AT LIP. XRAY WAS ORDER TO CHECK PLACEMENT.
--- NOTE | 2021-07-01 18:09 | NUR ---
CALLED AND TALKED WITH DOCTOR GRISELDA PATIENT IS NOT TO BE PRONED TODAY BECAUSE OF THE BLEEDING THAT HAPPED YESTERDAY WITH PRONING. PATIENT IS AT GOAL RATE FOR TUBE FEEDING. PATIENT IS RESTING IN BED. HAS GONE HOME, AND WILL BE BACK TOMORROW TO WATCH THE [employer] GAME WITH HIM.
[2021-07-02] VITALS (25 sets, daily range): BP systolic 80–127; BP diastolic 46–66
[2021-07-02 06:55] LABS: HEMATOCRIT 32.8 % (42.0-52.0); HEMOGLOBIN 10.4 gm/dL (14.0-18.0); MCH 21.5 pg (26.0-34.0); MCHC 31.7 g/dL (28.0-37.0); MCV 67.8 fL (80.0-100.0); RBC 4.84 mil/uL (4.50-6.00); RDW 14.4 % (10.5-14.5); WBC 8.8 thou/uL (4.0-11.0)
[2021-07-02 06:59] LABS: CALCIUM 8.3 mg/dL (8.5-10.1); CREATININE 0.8 mg/dL (0.7-1.3); POTASSIUM 5.3 mmol/L (3.5-5.1)
--- NOTE | 2021-07-02 07:00 | NUR ---
PATIENT PROGRESSING SLOWLY TOWARD GOALS AND POC. CONT TO TITRATE DOWN OXYGEN ANIVAL AND WEAN OFF SEDATION ABLE. PT VITALS STABLE OVERNOC. SR WITH SOME PACs JUST BEFORE CHANGE OF SHIFT. WILL CONTINUE TO MONITOR AND FOLLOW POC
--- NOTE | 2021-07-02 09:30 | NUR ---
0815: DR. STAUFFER AT BEDSIDE. RN DISCUSSED IWTH HIM PT'S POC. NOTIFIED HIM RN ATTEMPTED TO TITRATE DOWN ON SEDATION DUE TO LOW BP. HOLDING AMIODARONE THIS AM. RN TO RESTART LEVO. NEW ORDERS FOR CHANGE IN TF TO NEPRO DUE TO ELEVATED POTASSIUM LEVEL THIS AM AND FOR ONE TIME BOLUS TO ASSIST PRESSURES.
--- NOTE | 2021-07-02 09:31 | NUR ---
0830: LEVOPHED RESTARTED AT THIS TIME TO MAINTAIN MAP >60
--- NOTE | 2021-07-02 10:47 | NUR ---
1045: RN CALLED DR. STAUFFER TO UPDATE ON BP AFTER FLUID BOLUS. RN TURNED LEVOPHED ON PRIOR TO BOLUS TO MAINTAIN MAP >60. AFTER IVF, BP 86/49 (60) WITH LEVO TURNED OFF. DR. STAUFFER TO ORDER ADDITIONAL BOLUS AND MAINTENANCE FLUIDS. OKAY TO RESUME LEVO TO KEEP MAP >[address]. STAUFFER.
--- NOTE | 2021-07-02 12:53 | NUR ---
1145: DISCUSSED POC WITH DR. VILLALOBOS AT BEDSIDE. NOTIFIED HIM OF IVF BOLUS AND POSSIBLE ORDERS FOR MAINTENANCE FLUIDS FROM DR. STAUFFER. DUE TO HYPOTENSION AND NEED FOR RESUMPTION OF LEVO GTT FOR SHORT PERIOD OF TIME. DR. VILLALOBOS IS OKAY WITH IVF. CONTINUE TO MONITOR UOP CLOSELY IN SETTING OF HYPOTENSION. NO CONCERNS WITH UOP AT THIS TIME. NOTIFIED HIM TF HAVE BEEN RESUMED AND PT SEEMS TO TOLERATE CHANGE TO NEPRO WELL, ONLY 100MLS OF RESIDUAL THIS AFTERNOON. DISCUSSED PEEP OF 16 AND FIO2 OF 50%, NOTIFIED DR. VILLALOBOS PT CONTINUES TO TRY AND OVERBREATHE THE VENT AT TIMES. NO VENT CHANGES ORDERED.
--- NOTE | 2021-07-02 13:03 | NUR ---
1300: RN SPOKE WITH PT'S SPOUSE, ANANDA VIA TELEPHONE. RN UPDATED HER ON CHANGES TO TF, CURRENT VENTILATOR SETTINGS, BP CHANGES, MD ORDERS, AND PT'S STATUS. SHE VERBALIZES UNDERSTANDING AND DENIES CONCERNS.
--- NOTE | 2021-07-02 18:46 | NUR ---
1900: PT IS MAINTAINING ON PROGRESS TOWARDS GOALS THIS SHIFT. PT REMAINS ON SAME VENTILATOR SETTINGS WITH PEEP OF 16 AND FIO2 OF 50%. UNABLE TO TITRATE DOWN ON SETTINGS TODAY. TOLERATING TUBE FEEDS AT THIS TIME, INCREASING TO GOAL RATE TOLERATED. BP IMPROVED AFTER IVF BOLUS WITH NO FURTHER NEED TFOR PRESSORS THIS SHIFT.
--- NOTE | 2021-07-02 22:45 | NUR ---
SPOKE WITH DR. TREJO REGARDING PATIENT'S IRRG. RHYTHM AND ELEVATED HEART RATE. EKG ORDERED, COMPLETED, AND REVIWED BY DR. TREJO. ORDERS GIVEN TO START AN AMIO GTT PER PROTOCOL WITH BOLUS DOSE. WILL CONTINUE TO MONITOR. .
[2021-07-03] VITALS (19 sets, daily range): BP systolic 104–1578; BP diastolic 53–110
[2021-07-03 05:49] LABS: HEMATOCRIT 34.7 % (42.0-52.0); HEMOGLOBIN 11.1 gm/dL (14.0-18.0); MCH 21.4 pg (26.0-34.0); MCHC 31.9 g/dL (28.0-37.0); MCV 67.2 fL (80.0-100.0); RBC 5.17 mil/uL (4.50-6.00); RDW 14.6 % (10.5-14.5); WBC 12.5 thou/uL (4.0-11.0)
[2021-07-03 06:18] LABS: ALBUMIN 2.4 g/dL (3.4-5.0); CALCIUM 8.1 mg/dL (8.5-10.1); CREATININE 0.8 mg/dL (0.7-1.3); POTASSIUM 4.9 mmol/L (3.5-5.1); TOTAL BILIRUBIN 0.7 mg/dL (0.2-1.0); TOTAL PROTEIN 5.7 g/dL (6.4-8.2)
--- NOTE | 2021-07-03 07:34 | EKG ---
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
--- NOTE | 2021-07-03 07:34 | EKG ---
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: : 1960 Requested By: Navid Edward Order Number: [id number] MD: Binu Pepper Measurements Intervals [place] Rate: 136 P: MN: QRS: 76 QRSD: 82 T: 187 QT: 333 QTc: 501 Interpretive Statements Atrial flutter Nonspecific repol abnormality, lateral leads Prolonged QT interval Compared to ECG 07/02/2021 22:22:18 Early repolarization now present Myocardial infarct finding no longer present Electronically Signed On 07-03-2021 7:34:10 RDA by Binu Pepper [email or web address] <ELECTRONICALLY SIGNED> By: Binu Pepper MD, [facility] 07/03/21 0734 22 22 Binu Pepper MD, FACC /EPI
--- NOTE | 2021-07-03 08:01 | NUR ---
CARDS CLINIC SPECIALIST, KAREN SANFORD AT BEDSIDE, ORDERED TO TURN AMIO GTT BACK UP TO 1 MG/MIN AND DO NOT TURN DOWN UNTIL CARDS ORDERS TO TURN DOWN.
--- NOTE | 2021-07-03 08:53 | NUR ---
PATIENT DEEPLY SEDATED FOR VENT MANAGEMENT. AFLUTTER WITH CONT AMIO GTT. PROPOFOL GTT TITRATED DOWN TO ASSIST WITH BP SUPPORT. 500 ML IVF GIVEN.
[2021-07-04] VITALS (40 sets, daily range): BP systolic 59–213; BP diastolic 34–113
[2021-07-04 04:43] LABS: CALCIUM 7.8 mg/dL (8.5-10.1); CREATININE 0.8 mg/dL (0.7-1.3); POTASSIUM 5.2 mmol/L (3.5-5.1)
--- NOTE | 2021-07-04 06:27 | NUR ---
CONTINUES ON THE VENT WITH 60% FIO2. HIS BLOOD PRESSURE TONIGHT HAS BEEN UP AND DOWN. THE HIGHEST WAS A SYSTOLIC IN THE 170'S, WHICH REQUIRED VASOTEC IV . BLOOD PRESSURE QUICLKY WENT DOWN TOO FAR WITH A SYSTOLIC IN THE UPPER 70'S. ADJUSTED HIS SEDATIONA AND WAS ABLE TO RECOVER A NORMAL BLOOD PRESSURE. NO FAMILY HAS CALLED TONIGHT.
--- NOTE | 2021-07-04 16:34 | NUR ---
Pt's did bring in his FMLA paperwork and provided it to the attending for completion.
[2021-07-05] VITALS (123 sets, daily range): BP systolic 74–148; BP diastolic 35–93
--- NOTE | 2021-07-05 02:41 | NUR ---
1999- Noified Dr. Bahena about pts BP with systolic in the 200s and pt coughing on the vent. He ordered to give PRN vasotec and to restart propofol. 2199- vasotec given and over corrected pts BP to 59/34. Propofol turned off and called Dr. Bahena who ordered to restart levophed.
[2021-07-05 05:03] LABS: CREATININE 0.8 mg/dL (0.7-1.3); POTASSIUM 5.2 mmol/L (3.5-5.1)
[2021-07-05 05:05] LABS: HEMATOCRIT 35.2 % (42.0-52.0); MCH 21.1 pg (26.0-34.0); MCHC 31.3 g/dL (28.0-37.0); MCV 67.4 fL (80.0-100.0); RBC 5.23 mil/uL (4.50-6.00); RDW 14.8 % (10.5-14.5); WBC 19.9 thou/uL (4.0-11.0)
--- NOTE | 2021-07-05 10:08 | NUR ---
ART DISPLAY MAKER NAZANIN BAILEY IN AND SHE INSTRUCTED WITH NEW ORDER AND WATCH THIS RN TURN DOWN THE AMIODARONE TO 0.5 @ 0915. TALKED WITH RT AND PEEP WAS DECREASED TO 12 @ 0815 THIS AM. PATIENT 02 IS STILL IN THE HI 90'S WILL ASKED IF WE CAN TURN DOWN AGAIN SHORTLY. THIS RN HAS BEEN TURNING DOWN SEDATION SLOWLY THIS AM WELL. PATIENT IS RESTING IN BED.
--- NOTE | 2021-07-05 12:53 | NUR ---
SON HERE TO SEE DAD. ASKED ABOUT VENT SETTINGS AND IV DRIPS. HE RUBBED LOTION ON TO HANDS AND WASHED FACE. CARIOLOGIST IN TO SEE PATIENT NO NEW ORDERS AT THIS TIME.
--- NOTE | 2021-07-05 18:52 | NUR ---
SON WENT HOME @ 1600. PATIENT RESTING IN BED
[2021-07-06] VITALS (36 sets, daily range): BP systolic 81–164; BP diastolic 47–103
[2021-07-06 03:26] LABS: HEMATOCRIT 33.3 % (42.0-52.0); HEMOGLOBIN 10.6 gm/dL (14.0-18.0); MCH 21.3 pg (26.0-34.0); MCHC 31.8 g/dL (28.0-37.0); MCV 66.9 fL (80.0-100.0); RBC 4.97 mil/uL (4.50-6.00); RDW 15.1 % (10.5-14.5); WBC 12.5 thou/uL (4.0-11.0)
[2021-07-06 03:56] LABS: CALCIUM 7.9 mg/dL (8.5-10.1); CREATININE 0.9 mg/dL (0.7-1.3); POTASSIUM 4.7 mmol/L (3.5-5.1)
--- NOTE | 2021-07-06 11:24 | NUR ---
DOCTOR GRISELDA AND ROUNDING DONE. ASKED ABOUT CATH FLOW AND WAS ORDERED. ASKED ABOUT ABG HE DID NOT WANT ONE. HE WANT CPAP TRIAL DONE AND SEDATION WAS LOWERED TO THIS COULD HAPPEN. PATIENT TOLERATING WELL. ASKED ABOUT STARTING SERAQUAL TO HELP WITH GETTING OF SEDATION WAS ORDERED. PATIENTS IN TO SEE HIM SHE WOULD LIKE TO TALK WITH DOCTOR XIOMY ABOUT PEG AND TRACH. LEFT A MESSAGE FOR HIM ABOUT THIS. TALKED TO ABOUT WHAT IS HAPPENING WITH HIM RIGHT NOW WITH MEDICATIONS AND VENT SETTINGS. PATIENT RESTING IN BED.
[2021-07-06 15:56] LABS: BE(vivo) 6.1 mmol/L (-2 to +3); HCO3 28.5 mmol/L (22.0-26.0); PCO2 33.8 mmHg (35.0-45.0); PO2 56.9 mmHg (80.0-100.0); pH 7.544 (7.360-7.450); sO2 92.9 % (92.0-98.0)
--- NOTE | 2021-07-06 17:56 | NUR ---
TALKED WITH DOCTOR STAUFFER AND DOCTOR VILLALOBOS ABOUT PATIENT SAYING IT WAS OK FOR TRACH AND PEG ORDER FOR CONSULT CALLED TO [facility] OFFICE. DOCTOR CHERI AND DOCTOR CM CALLED BACK AND THEY WILL SEE HIM 07/07/21 AND THEY ARE GOING TO TALK WITH DOCTOR VILLALOBOS WELL. PATIENT DID WELL ON SEDATION VAC HE WAS ABLE TO OPEN HIS EYES AND TRY AND SQUEESE HAND WITH ONLY A SMALL AMOUNT OF PRESSURE. WAS HERE AND WAS ABLE TO SEE THIS, SHE ALSO WAS ABLE TO SEE THE RESULTS OF THE ABG THAT WAS TAKEN. SHE SAID SHE WILL BE BACK 07/07/21. PATIENT IS RESTING IN BED.
--- NOTE | 2021-07-06 18:45 | NUR ---
CATHFLOW WAS PLACED IN TO NETTLES HUB OF CENTRAL LINE @ 1230 AND THIS DID NOT MAKE BLOOD FLOW. PLACE IN AGAIN @ 1700 NO BLOOD RETURN AT THIS TIME.
[2021-07-07] VITALS (29 sets, daily range): BP systolic 79–143; BP diastolic 44–86
[2021-07-07 05:04] LABS: CREATININE 0.9 mg/dL (0.7-1.3); POTASSIUM 4.1 mmol/L (3.5-5.1)
[2021-07-07 07:54] LABS: ALBUMIN 2.3 g/dL (3.4-5.0); TOTAL BILIRUBIN 0.8 mg/dL (0.2-1.0); TOTAL PROTEIN 5.3 g/dL (6.4-8.2)
[2021-07-07 10:22] LABS: HEMATOCRIT 33.4 % (42.0-52.0); HEMOGLOBIN 10.7 gm/dL (14.0-18.0); MCH 21.5 pg (26.0-34.0); MCHC 32.2 g/dL (28.0-37.0); MCV 66.7 fL (80.0-100.0); RBC 5.01 mil/uL (4.50-6.00); RDW 15.1 % (10.5-14.5); WBC 10.6 thou/uL (4.0-11.0)
[2021-07-07 11:13] LABS: BE(vivo) 5.6 mmol/L (-2 to +3); HCO3 28.5 mmol/L (22.0-26.0); PCO2 35.4 mmHg (35.0-45.0); PO2 75.4 mmHg (80.0-100.0); pH 7.524 (7.360-7.450); sO2 96.4 % (92.0-98.0)
--- NOTE | 2021-07-07 14:32 | NUR ---
Case discussed in ICU rounds this morning. Cm spoke with pt's this afternoon. Support provided. She indicates that she is still hoping the pt can wean off the vent but is agreeable to move forward with trach/peg placement on Saturday. She states that he would not want intermediate accountant life support if there is no chance of recover;however if there is hope that a trach/peg/vent would be short term and he has a chance to recover, then she is very much in agreement with that at this point. She did get the FMLA paperwork back from the attending and has it at home. She was complimentary of the ICU staff. LTAC discussed briefly as the likely next step and that cm will f/u with her next week and check his insurance to see who is in network out of the three ltac providers in our area.
[2021-07-08] VITALS (46 sets, daily range): BP systolic 77–126; BP diastolic 45–78
[2021-07-08 06:08] LABS: HEMATOCRIT 30.4 % (42.0-52.0); MCH 21.9 pg (26.0-34.0); MCV 66.3 fL (80.0-100.0); RBC 4.58 mil/uL (4.50-6.00); RDW 15.1 % (10.5-14.5); WBC 8.8 thou/uL (4.0-11.0)
[2021-07-08 06:26] LABS: CREATININE 0.8 mg/dL (0.7-1.3); POTASSIUM 4.2 mmol/L (3.5-5.1)
[2021-07-08 11:32] LABS: HCO3 23.7 mmol/L (22.0-26.0); PCO2 31.8 mmHg (35.0-45.0); PO2 72.1 mmHg (80.0-100.0); pH 7.491 (7.360-7.450); sO2 95.8 % (92.0-98.0)
--- NOTE | 2021-07-08 12:24 | NUR ---
PATIENT HERE. SEDATION VAC WAS DONE WITH CPAP JUST FINSHE BEFORE SHE GOT HERE. PATIENT IS RESTING IN BED
--- NOTE | 2021-07-08 14:00 | NUR ---
SON CAME IN TO SEE DAD.
--- NOTE | 2021-07-08 16:31 | NUR ---
SON HAS GONE AND IS BACK. WHEN WALKED IN PATIENT OPEN HIS EYE UP. HE IS RESTING IN BED WITH WIFT AT BED SIDE.
--- NOTE | 2021-07-08 18:11 | NUR ---
HAS GONE HOME AND WILL BE BACK TOMARROW.
[2021-07-09] VITALS (47 sets, daily range): BP systolic 87–159; BP diastolic 48–93
--- NOTE | 2021-07-09 11:00 | NUR ---
IS AT BED SIDE.
--- NOTE | 2021-07-09 11:37 | NUR ---
DOCTOR GRISELDA ON THE FLOOR WANTS TO START CPAP SEDATION TURNED OFF. RT TOLD THAT THE SEDATION IS OFF.
--- NOTE | 2021-07-09 12:00 | NUR ---
SEDATION STARTED AGAIN CPAP TRIAL DONE.
--- NOTE | 2021-07-09 16:58 | NUR ---
PATIENTS WENT HOME, SHE SAID SON MIGHT COME IN TOMORROW.
[2021-07-10] VITALS (39 sets, daily range): BP systolic 85–151; BP diastolic 47–103
[2021-07-10 05:02] LABS: CALCIUM 8.1 mg/dL (8.5-10.1); CREATININE 0.7 mg/dL (0.7-1.3); POTASSIUM 3.7 mmol/L (3.5-5.1)
[2021-07-10 05:03] LABS: HEMATOCRIT 29.9 % (42.0-52.0); HEMOGLOBIN 9.8 gm/dL (14.0-18.0); MCHC 32.8 g/dL (28.0-37.0); MCV 66.9 fL (80.0-100.0); RBC 4.47 mil/uL (4.50-6.00); RDW 15.4 % (10.5-14.5); WBC 10.4 thou/uL (4.0-11.0)
--- NOTE | 2021-07-10 11:46 | NUR ---
PER DR TOSCANO, RN TURNED ALL SEDATION ON. SEDATION WAS TURNED OFF AT 1103. PT PUT ON CPAP TRIAL AT 1115. PT O2 SAT STAYED ABOVE 90. HR 70-80S. RR WAS 18-25 FOR MOST OF SEDAITON BEI9NG OFF. RT WAS PRESENT AND STATED MV WERE TOO HIGH. PT NOT FOLLOWING COMMANDS APPROPRIATELY. PT SHOOK HEAD TO ANSWER COMMANDS. PT FAILED CPAP TRIAL AND SEDATION WAS TURNED ON AT HALF WHAT IS WAS BEFORE SEDATION VACATION. RT MESSAGED DORCAS ABOUT RESULTS OF CPAP TRIAL. PT SON WAS PRESENT AT BEDSIDE WHEN SEDATION VACATION AND CPAP TRIAL WAS PERFORMED. SON HAS CONCERNS ABOUT WHY PT ISN'T TRACHED YET. RN AND RT ANSWERED QUESTIONS. RN WILL CONTINUE TO MONITOR PT AND FOLLOW PLAN OF CARE.
--- NOTE | 2021-07-10 18:06 | NUR ---
Care team anticipating trach/peg soon. LTAC referrals initiated by faxing face sheet to [facility], [facility] and [facility] to see who is in network. will follow.
[2021-07-11] VITALS (115 sets, daily range): BP systolic 82–157; BP diastolic 45–94
[2021-07-11 04:21] LABS: BE(vivo) 2.1 mmol/L (-2 to +3); HCO3 25.1 mmol/L (22.0-26.0); PCO2 33.2 mmHg (35.0-45.0); PO2 87.2 mmHg (80.0-100.0); pH 7.497 (7.360-7.450); sO2 97.4 % (92.0-98.0)
[2021-07-11 05:16] LABS: HEMATOCRIT 27.2 % (42.0-52.0); HEMOGLOBIN 8.9 gm/dL (14.0-18.0); MCHC 32.9 g/dL (28.0-37.0); RBC 4.06 mil/uL (4.50-6.00); RDW 15.4 % (10.5-14.5); WBC 7.1 thou/uL (4.0-11.0)
[2021-07-11 05:47] LABS: CALCIUM 7.9 mg/dL (8.5-10.1); CREATININE 0.6 mg/dL (0.7-1.3); POTASSIUM 4.3 mmol/L (3.5-5.1)
--- NOTE | 2021-07-11 16:19 | NUR ---
PT GOT TRACH/PEG TODAY. [facility] IS IN NETWORK BUT ARE CURRENTLY FULL. PT'S INSURANCE REQUIRES PT'S HAVE TRACH FOR 5 DAYS PRIOR TO TRANSFER TO LTAC LEVEL OF CARE. CM TO FOLLOW UP REGARDING DC PLANNING.
[2021-07-12] VITALS (25 sets, daily range): BP systolic 84–150; BP diastolic 46–101
--- NOTE | 2021-07-12 13:19 | NUR ---
GABRIELA PT BLEEDING FROM HIS TRACH SITE. DISCUSSED LABS AND PLATLET COUNT W/ MD TOSCANO PER MD ORDER FONDAPARINUX GIVEN.
--- NOTE | 2021-07-12 15:13 | NUR ---
F/u call placed to local LTACs. They note pt's plan does have ltac benefits but no SNF benefits so they are uncertain if they can accept due to concerns over his dc plan. All are in network with [facility]. Pt is s/p trach and peg but still on sedation and pressure support. Will reassess his progress toward vent weaning and his rehab needs early next week. All three are willing to reassess pending his progress and his dc plan.
[2021-07-13] VITALS (24 sets, daily range): BP systolic 84–156; BP diastolic 48–90
--- NOTE | 2021-07-13 14:33 | NUR ---
Case discussed with the care team. Spoke with Fidelia this afternoon. Emotional support provided. LTAC options discussed. She is aware that [facility] and [facility] do not feel they can accept as he does not have a snf benefit. [facility] has called back and is open to following along and reassessing early next week. Their liason will try to stop by and visit with the pt's as well. PT/OT/Rehab evals requested as pt may benefit from an acute rehab stay once he is off the vent. Pt's notes the attending spoke to her in regards to potential dc planning needs as well. She is agreeable to ongoing dc planning efforts and updating all three LTAC early next week. Will follow.
--- NOTE | 2021-07-13 19:44 | NUR ---
PT HAD BMX2, PT DESAT HAD ANXIETY, LORAZAPAM X1 GIVEN FIO2 INCREASED TO 60 %. PT RULED IN FOR SEPSIS DORCAS AWARE NOT NEW INTERVETIONS AT THIS TIME.
[2021-07-14] VITALS (24 sets, daily range): BP systolic 93–153; BP diastolic 52–99
[2021-07-14 11:26] LABS: HEMATOCRIT 27.9 % (42.0-52.0); HEMOGLOBIN 9.1 gm/dL (14.0-18.0); MCHC 32.4 g/dL (28.0-37.0); MCV 67.7 fL (80.0-100.0); RBC 4.13 mil/uL (4.50-6.00); RDW 16.6 % (10.5-14.5); WBC 9.1 thou/uL (4.0-11.0)
--- NOTE | 2021-07-14 11:34 | NUR ---
REHAB MEDICINE AWARE FOR CONSULT. WILL PLAN FOR DR. ABDI TO SEE PATIENT FOR CONSULT ON 07/17/20, AFTER PATIENT HAS BEEN SEEN BY THERAPY.
[2021-07-14 11:37] LABS: CALCIUM 7.7 mg/dL (8.5-10.1); CREATININE 0.4 mg/dL (0.7-1.3)
--- NOTE | 2021-07-14 18:26 | NUR ---
PT CASSANDRA HENDRICKSON OOZING DARK BLOOD, ANTICIAGULANT HELD PER MD CM. PT ALBERTINA W ACTIVITY. PT ANXIOUS PRN LORAZAPAM AND FENANYL GIVEN FOR PAIN AND ANXIETY.
[2021-07-15] VITALS (83 sets, daily range): BP systolic 71–223; BP diastolic 36–149
[2021-07-15 02:07] LABS: HEMATOCRIT 28.4 % (42.0-52.0); HEMOGLOBIN 9.3 gm/dL (14.0-18.0); MCH 21.9 pg (26.0-34.0); MCHC 32.8 g/dL (28.0-37.0); RBC 4.24 mil/uL (4.50-6.00); RDW 16.1 % (10.5-14.5); WBC 10.6 thou/uL (4.0-11.0)
[2021-07-15 02:11] LABS: CALCIUM 7.9 mg/dL (8.5-10.1); CREATININE 0.5 mg/dL (0.7-1.3); MAGNESIUM 1.8 mg/dL (1.8-2.4)
--- NOTE | 2021-07-15 13:56 | NUR ---
WAS GIVEN PERMISSION BY DR. BOLTON TO CHANGE DATE OF CT OF CHEST FROM TODAY TO TOMORROW.
[2021-07-16] VITALS (73 sets, daily range): BP systolic 74–188; BP diastolic 44–112
[2021-07-16 05:18] LABS: HEMATOCRIT 31.1 % (42.0-52.0); HEMOGLOBIN 10.1 gm/dL (14.0-18.0); MCH 21.8 pg (26.0-34.0); MCHC 32.5 g/dL (28.0-37.0); MCV 67.1 fL (80.0-100.0); RBC 4.63 mil/uL (4.50-6.00); RDW 16.4 % (10.5-14.5); WBC 13.1 thou/uL (4.0-11.0)
[2021-07-16 06:04] LABS: CALCIUM 8.3 mg/dL (8.5-10.1); CREATININE 0.5 mg/dL (0.7-1.3); MAGNESIUM 1.9 mg/dL (1.8-2.4); POTASSIUM 3.9 mmol/L (3.5-5.1)
--- NOTE | 2021-07-16 09:03 | NUR ---
PT VERY ANXIOUS THIS MORNING, WHEN ASKED IF HE IS IN PAIN, PT SHAKES HEAD NO. HE KEEPS ASKING FOR HIS BY MOUTHING WORDS. PT BREATHING AT RATE BETWEEN 35-50X MIN. 50MCG IVP GIVEN TO PT VIA RIGHT IJ TO HELP WITH ANXIETY.
--- NOTE | 2021-07-16 10:02 | NUR ---
PT APPEARS TO BE WARM TO THE TOUCH, TEMP RECHECKED WHICH READS 100.9, 650MG TYLENOL GIVEN VIA PEG TUBE. WILL CONTINUE TO REASSESS.
--- NOTE | 2021-07-16 10:37 | NUR ---
PT CONTINUES TO BREATH AT A RAPID RATE, TEMP RECHECKED WHICH READS 98.2 ORAL NOW, FEVER UNDER CONTROL. 1MG ATIVAN GIVEN IVP TO PATIENT TO HELP CONTROL ANXIETY AND PRECEDEX GTT INCREASED TO 1.5MCG/KG/HR. RT ALSO NOTIFIED, PT HAS BILATERAL LUNG SOUNDS WHICH SOUND CLEAR/COARSE. NOTHING COMES OUT WHEN SUCTIONED. CHEST XRAY ALSO ORDERED FOR THE PATIENT. PT NEEDS CHEST CT SCAN HOWEVER, DO NOT BELIEVE PATIENT IS ABLE TO TOLERATE LAYING FLAT AT THIS TIME WITH HIS INCREASED WORK OF BREATHING/ANXIETY.
--- NOTE | 2021-07-16 19:43 | NUR ---
AROUND 1500, PT EXPERIENCED AN EPISODE OF HYPOTENSION AND HR DROPPED FROM 70S TO 30S. HR STAYED BRADYCARDIC FOR SECONDS BEFORE COMING BACK UP. DR CASTILLO WAS IN THE ICU AND RESPONDED TO THE INCIDENT. CARDIOLOGY WAS NOTIFIED FOR CONSULT. BLOOD PRESSURE WAS HYPOTENSIVE WITH MAP IN THE 50S/LOW 60S. DR CASTILLO PREPARED FOR ARTERIAL LINE PLACEMENT. HOWEVER, BLOOD PRESSURE CAME BACK UP TO MAP OF 80S AND ART LINE WAS NOT PLACED. BP HAS BEEN STABLE THE REST OF THE SHIFT. PT WAS TAKEN TO CT AND DID WELL. PT WAS NOT OVERLY ANXIOUS OR RESTLESS. WAS AT BEDSIDE MOST OF THE SHIFT AND WAS UPDATED REGARDING PT'S STATUS AND PLAN OF CARE. RN TO CONTINUE TO MONITOR AND FOLLOW POC.
[2021-07-17] VITALS (47 sets, daily range): BP systolic 95–152; BP diastolic 54–90
[2021-07-17 05:42] LABS: HEMATOCRIT 30.8 % (42.0-52.0); MCH 21.7 pg (26.0-34.0); MCHC 32.4 g/dL (28.0-37.0); MCV 67.1 fL (80.0-100.0); RBC 4.59 mil/uL (4.50-6.00); RDW 17.3 % (10.5-14.5); WBC 17.2 thou/uL (4.0-11.0)
[2021-07-17 06:08] LABS: CALCIUM 9.1 mg/dL (8.5-10.1); CREATININE 0.5 mg/dL (0.7-1.3); MAGNESIUM 1.9 mg/dL (1.8-2.4); POTASSIUM 3.7 mmol/L (3.5-5.1)
[2021-07-17 11:40] LABS: BE(vivo) 7.2 mmol/L (-2 to +3); PCO2 35.6 mmHg (35.0-45.0); PO2 76.6 mmHg (80.0-100.0); pH 7.543 (7.360-7.450); sO2 96.7 % (92.0-98.0)
--- NOTE | 2021-07-17 13:52 | EKG ---
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 : 1960 Requested By: Kyree Yoon Order Number: [id number] MD: Binu Pepper Measurements Intervals [place] Rate: 106 P: 84 RI: 137 QRS: 34 QRSD: 84 T: 52 QT: 361 QTc: 480 Interpretive Statements Sinus tachycardia Probable left atrial enlargement Minimal ST depression, anterolateral leads Borderline prolonged QT interval Compared to ECG 07/02/2021 22:23:35 ST (T wave) deviation now present Atrial flutter no longer present Early repolarization no longer present Electronically Signed On 07-17-2021 13:52:[address] F[address]IGHT by Binu Pepper [email or web address] <ELECTRONICALLY SIGNED> By: Binu Pepper MD, FAC 07/17/21 1352 0845 0845 Binu Pepper MD, [facility] /EPI
--- NOTE | 2021-07-17 15:53 | NUR ---
Case discussed in ICU rounds. Pt has trach/peg last week. His peep is too high for weaning trial and he is on the vent with 50%FIO2. Tolerating tube feedings. He had some heart rate issues and anxiety yesterday. PT evaluated and working on bed level exercises and instructed as well. Pt is very weak. He is answering yes/no questions and trying to mouth words. Will see how he progresses in the next few days and update [facility] once he is able to start cpap trials.
[2021-07-18] VITALS (45 sets, daily range): BP systolic 86–181; BP diastolic 47–114
[2021-07-18 05:41] LABS: HEMATOCRIT 30.5 % (42.0-52.0); HEMOGLOBIN 9.9 gm/dL (14.0-18.0); MCH 21.7 pg (26.0-34.0); MCHC 32.6 g/dL (28.0-37.0); MCV 66.5 fL (80.0-100.0); RBC 4.58 mil/uL (4.50-6.00); RDW 17.3 % (10.5-14.5); WBC 18.4 thou/uL (4.0-11.0)
[2021-07-18 05:48] LABS: CALCIUM 8.6 mg/dL (8.5-10.1); CREATININE 0.5 mg/dL (0.7-1.3); MAGNESIUM 1.9 mg/dL (1.8-2.4); POTASSIUM 4.2 mmol/L (3.5-5.1)
--- NOTE | 2021-07-18 10:30 | NUR ---
Discussed during los with the attending physician, consulted psych. Cont with vent support via trach, peg for nutritional support. Will cont following as needed. [facility] is following for possible Ltac when medically stable for dc to next level of support, Ltac.
[2021-07-18 10:42] LABS: BE(vivo) 3.2 mmol/L (-2 to +3); HCO3 28.6 mmol/L (22.0-26.0); PCO2 47.2 mmHg (35.0-45.0); pH 7.401 (7.360-7.450); sO2 84.8 % (92.0-98.0)
[2021-07-18 10:44] LABS: PO2 49.6 mmHg (80.0-100.0)
--- NOTE | 2021-07-18 11:15 | NUR ---
PATIENT WAS HAVE LOTS OF ANXIETY AND MEDICATION GIVEN TO HELP ALL AM. AT THIS TIME HE WAS RELAXED BUT 02 WOULD NOT COME UP AND WAS STAYING IN 70'S RT WU WAS CALLED AND SHE CAME OVER AND WAS WORKIN ON THE VENT, SHE DRAW ABG AND XRAY WAS GOTTEN. DOCTOR GRISELDA WAS CALLED AND TOLD WHAT WAS HAPPENING. HE CAME TO THE FLOOR AND CHANGED SETTING ON THE VENT ASKED FOR SEDATION TO BE RESTARTED AND GAVE NUMBER TO START IT ON. BRONCHOSCOPY WAS DONE TO TRY AND HELP BRING UP 02 STATS. DOCTOR GRISELDA WANT PATIENT PLACE ON LEFT SIDE FOR 8 HRS WILL BE DONE @ 1999. ABG WERE DONE AGAIN AND CALLED DOCTOR VILLALOBOS WITH RESULTS. HE IS AWARE THAT PATIENT 02 WAS IN 80'S MOST OF THE DAY. AT THE END OF THE DAY 1812 PATIENTS 02 IS 88%. WAS HERE AND HAS GONE HOME FOR THE DAY. SHE WAS ASKED NOT TO TAKE PIC OF THE PUMPS OR VENT.
--- NOTE | 2021-07-18 13:55 | NUR ---
1315-SPOKE W AT BEDSIDE.INSTRUCTED NOT TO BE DOING ANY PT CARE,NOT TO TRY TO GIVE PT WATER (ASKING FOR WATER YESTERDAY,PER -HE'S JUST SO DRY).INSTRUCTED TO ASK NSG IF SHE THOUGHT HE NEEDED SWABBING.SHE STATED SHE UNDERSTOOD. ALSO INFORMED HER NOT TO BE TAKING ANY PICTURES OF EQUIPMENT OR OF PT, IT IS AGAINST HOSPITAL POLICY. SHE AGAIN STATED SHE UNDERSTOOD & WOULD COMPLY W BOTH.--VW
[2021-07-18 14:04] LABS: BE(vivo) -0.2 mmol/L (-2 to +3); HCO3 28.1 mmol/L (22.0-26.0); PCO2 63.9 mmHg (35.0-45.0); PO2 61.9 mmHg (80.0-100.0); sO2 87.6 % (92.0-98.0)
[2021-07-18 14:06] LABS: pH 7.261 (7.360-7.450)
[2021-07-19] VITALS (90 sets, daily range): BP systolic 82–133; BP diastolic 48–83
[2021-07-19 05:17] LABS: HEMATOCRIT 29.5 % (42.0-52.0); HEMOGLOBIN 9.6 gm/dL (14.0-18.0); MCH 22.2 pg (26.0-34.0); MCHC 32.5 g/dL (28.0-37.0); MCV 68.4 fL (80.0-100.0); RBC 4.31 mil/uL (4.50-6.00); RDW 16.6 % (10.5-14.5); WBC 12.3 thou/uL (4.0-11.0)
[2021-07-19 06:17] LABS: CALCIUM 8.6 mg/dL (8.5-10.1); CREATININE 0.8 mg/dL (0.7-1.3)
[2021-07-19 11:12] LABS: BE(vivo) 5.2 mmol/L (-2 to +3); HCO3 33.9 mmol/L (22.0-26.0); PCO2 75.6 mmHg (35.0-45.0); sO2 94.6 % (92.0-98.0)
--- NOTE | 2021-07-19 16:31 | NUR ---
Case discussed in team rounds. Pt worsening over the past 24hrs and has confirmed DNR status with continued agg tx. [facility] liason updated as pt is not stable for LTAC or vent weaning at this time. Will follow.
[2021-07-19 16:47] LABS: HCO3 33.6 mmol/L (22.0-26.0); PO2 99.9 mmHg (80.0-100.0); sO2 96.4 % (92.0-98.0)
[2021-07-19 16:50] LABS: PCO2 75.1 mmHg (35.0-45.0); pH 7.269 (7.360-7.450)
--- NOTE | 2021-07-19 18:07 | NUR ---
CALLED AND TALKED TO EDUARDO THE PROGRAM ATTENDANT FROM CARDIOLOGY AND TOLD HER ABOUT PATIENT GOING IN TO AFIB, BY THE TIME EKG WAS DONE A WHILE LATER HAD STARTED THE AMIODARONE DRIP. CREPITUS ALL OVER CHEST BOTH SIDES OF CHEST AND FACE. TALKED TO DOCTOR VILLALOBOS ABOUT THIS AND ABOUT LAST SET OF ABG'S. PATIENTS WAS HERE AND HAS NOW GONE HOME.
[2021-07-20] VITALS (75 sets, daily range): BP systolic 83–128; BP diastolic 47–78
[2021-07-20 05:13] LABS: CALCIUM 8.3 mg/dL (8.5-10.1); CREATININE 0.6 mg/dL (0.7-1.3); POTASSIUM 5.4 mmol/L (3.5-5.1)
[2021-07-20 05:19] LABS: % SATURATION 20 % (20-39); IRON 27 ug/dL (65-175); TIBC 136 ug/dL (250-450)
[2021-07-20 05:24] LABS: HEMATOCRIT 27.5 % (42.0-52.0); HEMOGLOBIN 8.8 gm/dL (14.0-18.0); MCHC 31.9 g/dL (28.0-37.0); RBC 3.99 mil/uL (4.50-6.00); RDW 16.8 % (10.5-14.5); WBC 7.3 thou/uL (4.0-11.0)
--- NOTE | 2021-07-20 06:00 | NUR ---
ASSUMED CARE OF PT AT 1900. [facility] CALLED AT 0315 FOR A [facility] OF 3. [facility] INSRUCTED TO CALL THEM IF THE FAMILY DECIDES TO MAKE THE PATIENT COMFORT CARE. [facility] REFERENCE NUMBER: [id number] 2021 - 011
--- NOTE | 2021-07-20 07:06 | EKG ---
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 : 1960 Requested By: Stephen Bahena Order Number: [id number] MD: Binu Pepper Measurements Intervals [place] Rate: 132 P: 56 VT: 71 QRS: -66 QRSD: 142 T: -87 QT: 352 QTc: 522 Interpretive Statements Sinus tachycardia Ventricular premature complex Borderline abnrm T, anterolateral leads Compared to ECG 07/17/2021 08:45:35 Ventricular premature complex(es) now present Intraventricular conduction delay now present ST (T wave) deviation no longer present Electronically Signed On 07-20-2021 7:06:10 CATEGORY DIRECTOR by Binu Pepper [email or web address] <ELECTRONICALLY SIGNED> By: Binu Pepper MD, FACC 07/20/21 0706 1533 1533 Binu Pepper MD, [facility] /EPI
--- NOTE | 2021-07-20 09:18 | NUR ---
KILO CALLED FROM MAN UPDATE GIVE.
--- NOTE | 2021-07-20 10:00 | NUR ---
CM received report from bedside nurse and discussed during los with the attending physician. - Fidelia is possible considering palliative extubate and would like to talk with the physicians. CM passed on information to the attending physician, who did speak with Fidelia-. Will cont following as needed.
--- NOTE | 2021-07-20 11:15 | NUR ---
DOCTOR XIOMY ON FLOOR TALKED TO PATIENT ABOUT END OF LIFE CARE, SHE WOULD LIKE THIS. XIOMY ASKED ME TO CALL GRISELDA FOR COMFORT ORDER. CALLED DOCTOR GRISELDA AND COMFORT ORDER RECEIVE. PATIENTS IS WAITING FOR THERE KIDS TO GET HERE AND WILL REMOVE VENT. ALL OTHER ORDERS DONE.
--- NOTE | 2021-07-20 13:43 | NUR ---
CALLED [facility] AND TALKED WITH EZEKIEL ABOUT PATIENT GOING COMFORT AND GOING TO TAKE OFF VENT. SHE WILL CALL ME BACK SHORTLY.
--- NOTE | 2021-07-20 13:55 | NUR ---
EZEKIEL CALLED BACK FOR [facility] AND ASKED FOR NUMBER AND FOR ME TO TELL THAT A SOCIAL WORK PERSON WILL BE CALLING HER FROM A 913 NUMBER IN A FEW MINS ABOUT NEXT STEPS AND TO PLEASE ANSWER THE PHONE. WAS TOLD THIS.
--- NOTE | 2021-07-20 16:16 | NUR ---
1530-ASSUMED CARE OF PT.--VW 1600-[facility] AT BEDSIDE, LONG D/W .PAGE TO TO UPDATE,OBTAIN ORDERS. PT TENTATIVELY SCHEDULED FORO.R. AT 1999 TONIGHT FOR KIDNEY RETRIEVAL. PT'S & SON AT BEDSIDE, BOTH AWARE OF PLAN AND ARE IN AGREEMENT.MUCH EMO SUPPORT GIVEN.--VW
[2021-07-20 18:11] LABS: HEMATOCRIT 28.2 % (42.0-52.0); HEMOGLOBIN 9.1 gm/dL (14.0-18.0); MCHC 32.1 g/dL (28.0-37.0); MCV 68.3 fL (80.0-100.0); RBC 4.13 mil/uL (4.50-6.00); RDW 16.6 % (10.5-14.5)
[2021-07-20 18:16] LABS: PLATELET COUNT 250 thou/uL (150-400)
[2021-07-20 18:22] LABS: URINE BILIRUBIN NEGATIVE (Negative); URINE BLOOD 3+ (Negative); URINE CLARITY CLEAR; URINE COLOR YELLOW; URINE GLUCOSE-RANDOM* NEGATIVE (Negative); URINE KETONES NEGATIVE (Negative); URINE LEUKOCYTES NEGATIVE (Negative); URINE NITRITE NEGATIVE (Negative); URINE PROTEIN (DIPSTICK) 1+ (Negative); URINE SPECIFIC GRAVITY 1.025 (1.005-1.035)
[2021-07-20 18:27] LABS: ALBUMIN 1.9 g/dL (3.4-5.0); CALCIUM 8.4 mg/dL (8.5-10.1); CREATININE 0.7 mg/dL (0.7-1.3); DIRECT BILIRUBIN 0.2 mg/dL (<0.1-0.2); MAGNESIUM 2.3 mg/dL (1.8-2.4); PHOSPHORUS 2.8 mg/dL (2.5-4.9); TOTAL BILIRUBIN 0.6 mg/dL (0.2-1.0); TOTAL PROTEIN 6.1 g/dL (6.4-8.2)
[2021-07-20 18:30] LABS: POTASSIUM 6.1 mmol/L (3.5-5.1)
[2021-07-20 18:34] LABS: APTT 23.3 Seconds (24.5-32.8); INR 1.09; PROTIME 11.8 Seconds (10.5-12.1)
[2021-07-20 18:57] LABS: MUCUS 0-3 Light strn/LPF (None Seen); SQUAMOUS None Seen /LPF (0-3)
[2021-07-20 18:58] LABS: BACTERIA 1-9 Few /HPF (None Seen); URINE RBC >20 Many /HPF (NONE SEEN); URINE WBC 1-5 Rare /HPF (NONE SEEN)
[2021-07-20 18:59] LABS: CALCIUM OXALATE 0-3 Few /LPF (None Seen); COARSE GRANULAR CASTS 0-3 Few /LPF (None Seen); FINE GRANULAR CASTS 0-3 Few /LPF (None Seen)
[2021-07-20 19:43] LABS: BE(vivo) 10.6 mmol/L (-2 to +3); HCO3 38.9 mmol/L (22.0-26.0); PCO2 77.1 mmHg (35.0-45.0); pH 7.321 (7.360-7.450); sO2 93.2 % (92.0-98.0)
--- NOTE | 2021-07-20 21:21 | NUR ---
ESCORTED PT, FAMILY AND STAFF MEMBERS FROM [facility] TO OR RECOVERY ROOM. [id number] UNITS OF HEPARIN WAS ADMINISTERED AT 2014. PT WAS REMOVED FROM VENTILATOR AT 2015. PT CEASED BREATHING AND CARDIAC RHYTHM SHOWED ASYSTOLE. NO PALPABLE PULSES NOTED. DR AMBRIZ FROM ED PRONOUNCED PT . CTOD 2030. PT TAKEN IMMEDIATELY TO THE OR AND TRANSFERRED TO OR TABLE. AT 2035 PULSE CHECK REVEALED NO PALPABLE PULSES AND [facility] ASSUMED CARE OF THE PT. IV MORPHINE GTT STOPPED AT 2030. 70ML WASTED, WITNESSED BY Christ NAM.
[2021-07-20 21:46] LABS: ABSOLUTE NEUTROPHILS 15.3 thou/uL (1.4-8.2); METAMYELOCYTES 2 %; MYELOCYTES 3 %
[2021-07-20 21:49] LABS: ANISOCYTOSIS 1+; HYPOCHROMASIA 2+; MICROCYTES 2+; POIKILOCYTOSIS 1+
[2021-07-22 01:06] LABS: GLYCOHEMOGLOBIN (HGB A1C) 6.8 % (4.8-5.6)
== END 2021-07-20 20:31 | DRG 4 ==
LOC: ER 10:55 → ICU 13:48 → EROBS 13:48 → 3W 13:48 → ICU 06-25 02:37
PROVIDERS: Anesthesiology; Hospitalist; Internal Medicine; Internal Medicine Hematology & Oncology; Internal Medicine Pulmonary Disease; Nurse Practitioner; Pediatrics; Specialist; Student in an Organized Health Care Education/Training Program; ADMIT Hospitalist; ATTEND Hospitalist
PROC: 02HV33Z Insertion of Infusion Device into Superior Vena Cava, Percutaneous Approach (ICD-10-PCS; 2021-06-20)
PROC: 5A1955Z Respiratory Ventilation, Greater than 96 Consecutive Hours (ICD-10-PCS; principal; 2021-06-22)
PROC: 0BH17EZ Insertion of Endotracheal Airway into Trachea, Via Natural or Artificial Opening (ICD-10-PCS; 2021-06-22)
PROC: XW033E5 Introduction of Remdesivir Anti-infective into Peripheral Vein, Percutaneous Approach, New Technology Group 5 (ICD-10-PCS; 2021-06-27)
PROC: 0B113F4 Bypass Trachea to Cutaneous with Tracheostomy Device, Percutaneous Approach (ICD-10-PCS; 2021-07-11)
PROC: 0DJ08ZZ Inspection of Upper Intestinal Tract, Via Natural or Artificial Opening Endoscopic (ICD-10-PCS; 2021-07-11)
PROC: 0B9F8ZX Drainage of Right Lower Lung Lobe, Via Natural or Artificial Opening Endoscopic, Diagnostic (ICD-10-PCS; 2021-07-18)
DX: A41.89 Other specified sepsis (principal); U07.1 COVID-19; J12.82 Pneumonia due to coronavirus disease 2019; J96.21 Acute and chronic respiratory failure with hypoxia; G92.9 Unspecified toxic encephalopathy; E43 Unspecified severe protein-calorie malnutrition; N17.9 Acute kidney failure, unspecified; I48.91 Unspecified atrial fibrillation; Z79.01 Long term (current) use of anticoagulants; Z88.0 Allergy status to penicillin; Z88.8 Allergy status to other drugs, medicaments and biological substances; E87.5 Hyperkalemia; D69.6 Thrombocytopenia, unspecified; I48.0 Paroxysmal atrial fibrillation; Z68.27 Body mass index [BMI] 27.0-27.9, adult; E66.01 Morbid (severe) obesity due to excess calories; R74.01 Elevation of levels of liver transaminase levels
CPT/HCPCS: 10078; 10203; 10879; 50101; 50386; 50403; 50455; 50554; 51390; 56525; 57103; 58811; 58918; 62110; 62900; 65020; 65040